=== PATIENT | female | born 1965 | race Caucasian/White ===

== ENCOUNTER 2024-10-03 08:48 | Emergency (ER) | payer MEDICAID, OTHER ==
[~2024-10-03] VITALS: Ht 157.5 cm; Wt 70.3 kg
[2024-10-03 10:42] VITALS: TEMP 36.6; O2SAT 100
[2024-10-03] MEDS: TETRACAINE 0.5% OPHTH DROPS 4ML BOTHEYE ONE (14:00)
[2024-10-03] MEDS: FLUORESCEIN SODIUM 1MG/STRIP LEFTEYE ONE (14:00)
[2024-10-03] MEDS ORDERED: BRIM2.5D LEFTEYE (17:16)
[2024-10-03 17:50] VITALS: BP 142/70; PULSE 72; RESP 16; O2SAT 99
== END 2024-10-03 17:51 | disposition home or self-care (01) ==
LOC: ER 08:48
DX: H11.32 Conjunctival hemorrhage, left eye (principal); R56.9 Unspecified convulsions; I10 Essential (primary) hypertension; Z79.01 Long term (current) use of anticoagulants
CPT/HCPCS: 99284